=== PATIENT | male | born 1960 | race African-American/Black ===

== ENCOUNTER 2016-11-11 10:42 | Emergency (ER) | payer BC ==
--- NOTE | 2016-11-11 10:48 | ER Document Report ---
ED Medical Screen (RME) - General Stated Complaint: COUGH Mode of Arrival: Ambulatory Information source: Patient Notes: Patient reports hot and cold chills. Patient complains of generalized numbness to face and eye. Patient reports fever off and on. Patient does report cough. Patient reports symptoms for the past 4 days. hx: None I have greeted and performed a rapid initial assessment of this patient. A comprehensive ED assessment and evaluation of the patient, analysis of test results and completion of the medical decision making process will be conducted by additional ED providers. TRAVEL OUTSIDE OF THE [place] IN LAST 30 DAYS: No - Related Data Allergies/Adverse Reactions: No Known Allergies Allergy (Verified 11/11/16 10:46) Past Medical History - Immunizations Hx Diphtheria, Pertussis, Tetanus Vaccination: Yes Physical Exam - Respiratory Respiratory status: No respiratory distress Breath sounds: Nonproductive cough
[2016-11-11] MEDS ORDERED: ALBUTEROL SULFATE HFA (90 MCG/PUFF) 8 GM MDI (1 MDI/ER DISP) IH ONE (12:26)
[2016-11-11] MEDS ORDERED: PREDNISONE 20 MG TABLET PO ONE (12:27)
--- NOTE | 2016-11-11 12:29 | ER Document Report ---
ED General - General Chief Complaint: Flu Symptoms Stated Complaint: COUGH Mode of Arrival: Ambulatory TRAVEL OUTSIDE OF THE [place] IN LAST 30 DAYS: No - HPI Patient complains to provider of: cough Notes: Patient coming in with fevers chills cough ongoing for last 4 days states no recent travel no recent antibiotics patient states he does not smoke. No sick contacts. Patient states [id number] medications not working. Patient otherwise is also complains of mild shortness of breath. - Related Data Allergies/Adverse Reactions: No Known Allergies Allergy (Verified 11/11/16 10:46) Past Medical History - General Information source: Patient - Social History Smoking Status: Unknown if Ever Smoked Chew tobacco use (# tins/day): No Frequency of alcohol use: None Drug Abuse: None Family History: Reviewed & Not Pertinent Patient has suicidal ideation: No Patient has homicidal ideation: No Renal/ Medical History: Denies: Hx Peritoneal Dialysis - Immunizations Hx Diphtheria, Pertussis, Tetanus Vaccination: Yes Review of Systems - Review of Systems Constitutional: No symptoms reported EENT: No symptoms reported Cardiovascular: No symptoms reported Respiratory: Cough, Short of breath Gastrointestinal: No symptoms reported Genitourinary: No symptoms reported Male Genitourinary: No symptoms reported Musculoskeletal: No symptoms reported Skin: No symptoms reported Hematologic/Lymphatic: No symptoms reported Neurological/Psychological: No symptoms reported -: Yes All other systems reviewed and negative Physical Exam - Vital signs Vitals: Temp Pulse Resp BP Pulse Ox 97.5 F 66 16 124/89 H 99 11/11/16 10:48 11/11/16 10:48 11/11/16 10:48 11/11/16 10:48 11/11/16 10:48 Interpretation: Normal - General General appearance: Appears well, Alert - HEENT Head: Normocephalic, Atraumatic Eyes: Normal Pupils: PERRL - Respiratory Respiratory status: No respiratory distress Chest status: Nontender Breath sounds: Wheezing Chest palpation: Normal - Cardiovascular Rhythm: Regular Heart sounds: Normal auscultation Murmur: No - Abdominal Inspection: Normal Distension: No distension Bowel sounds: Normal Tenderness: Nontender Organomegaly: No organomegaly - Back Back: Normal, Nontender - Extremities General upper extremity: Normal inspection, Nontender, Normal color, Normal ROM , Normal temperature General lower extremity: Normal inspection, Nontender, Normal color, Normal ROM , Normal temperature, Normal weight bearing. No: Armida's sign - Neurological Neuro grossly intact: Yes Cognition: Normal Orientation: AAOx4 [place] Coma Scale Eye Opening: Spontaneous Adela Coma Scale Verbal: Oriented Adela Coma Scale Motor: Obeys Commands Adela Coma Scale Total: 15 Speech: Normal Motor strength normal: LUE, RUE, LLE, RLE Sensory: Normal - Psychological Associated symptoms: Normal affect, Normal mood - Skin Skin Temperature: Warm Skin Moisture: Dry Skin Color: Normal Course - Re-evaluation Re-evalutation: 11/11/16 15:06 Patient more likely suffering cough from a viral bronchitis.Patient more likely edema at the flu symptoms will last for 7 days cough may continue to 2-3 weeks afterwards and will treat patient's wheezing with some prednisone and a inhaler. Patient will be discharged home 11/11/16 15:07 - Vital Signs Vital signs: Temp Pulse Resp BP Pulse Ox 97.6 F 52 L 18 131/77 H 99 11/11/16 12:38 11/11/16 12:38 11/11/16 12:38 11/11/16 12:38 11/11/16 12:38 Discharge - Discharge Clinical Impression: Viral bronchitis Condition: Good Disposition: HOME, SELF-CARE Instructions: Influenza, Child ([facility]), Bronchitis ([facility]) Additional Instructions: Year evaluation today is consistent with a viral bronchitis possibly caused by the flu. Unfortunately there is no treatment that will cure your symptoms we will give you an inhaler and steroids to help relieve your symptoms I also gave you a prescription for Tessalon Perles to help relieve cough. I would also recommend trying honey in tea or honey in a beverage please make sure to drink plenty water. He may also try [id number] cough vacation. Return to the ER symptoms worsen Prescriptions: Benzonatate [Tessalon Perle 100 mg Capsule] 100 mg PO Q8HP PRN #30 cap PRN Reason: Prednisone [Deltasone 20 mg Tablet] 3 tab PO DAILY 5 Days Forms: Return to Work
[2016-11-11 12:39] VITALS: BP 131/77
== END 2016-11-11 12:38 | disposition home or self-care (01) ==
LOC: ER 10:42
DX: J40 Bronchitis, not specified as acute or chronic (principal); B97.89 Other viral agents as the cause of diseases classified elsewhere; R50.9 Fever, unspecified; R05 Cough; R06.02 Shortness of breath; R06.2 Wheezing
CPT/HCPCS: 99283; 71020; J7512; J3490